=== PATIENT | female | born 1985 ===

== ENCOUNTER 2025-02-11 09:39 | Emergency (ER) | payer OTHER, SELFPAY ==
--- NOTE | ~2025-02-11 | US_ITS ---
EXAMINATION: US TRIPLEX UPPER EXTREMITY, LEFT CLINICAL INFORMATION: Left upper extremity pain COMPARISON: None available. TECHNIQUE: Color-flow triplex imaging with spectral analysis and compression Doppler was performed on the left upper extremity. FINDINGS: The left internal jugular, subclavian, and axillary veins are patent and free of thrombus. The imaged segment of the left brachiocephalic vein is patent. Spectral doppler waveforms are normal. The brachial, basilic, cephalic, radial, and ulnar veins are patent and compressible. US/US venous duplex UE LT IMPRESSION: No evidence of deep venous thrombosis involving the left upper extremity. Electronically signed by: Roosevelt Jimenes MD 02/11/2025 12:02 PM [facility]
--- NOTE | ~2025-02-11 | US_ITS ---
US EXTREMITY NONVASCULAR LIMITED LEFT HISTORY: Left leg palpable mass in left lateral knee region. COMPARISON: None. TECHNIQUE: Grayscale and color Doppler ultrasound imaging of the left leg laterally, inferior to the knee was performed in the region of palpable concern as directed by the patient. FINDINGS: In the subcutaneous region of the left lower lateral knee, correlating with the area of palpable concern, there is a subcutaneous oval hyperechoic mass, circumscribed, with good through transmission, no internal color Doppler flow, measuring 5.5 x 1.5 x 4.1 cm. This is consistent with a lipoma. No definite suspicious features. No additional abnormalities. US/US Extremity Nonvas Limited LT IMPRESSION: Palpable abnormality in the left lower leg correlates with a 5.5 x 1.5 x 4.1 cm subcutaneous lipoma. This finding is benign. Electronically signed by: Elmer Cristobal MD 02/11/2025 12:04 PM [facility]
--- NOTE | ~2025-02-11 | XR_ITS ---
EXAMINATION: XR CHEST CLINICAL INFORMATION: Pneumonia?; Cough, shortness of breath COMPARISON: None available. TECHNIQUE: 2 views of the chest were obtained. FINDINGS: The cardiac, hilar, and mediastinal contours are normal. The lungs are clear bilaterally. There is no pneumothorax or pleural effusion. There is no focal osseous or soft tissue abnormality. XR/XR chest 2V IMPRESSION: No active pulmonary disease. Electronically signed by: lEmer Cristobal MD 02/11/2025 12:27 PM [facility]
--- NOTE | ~2025-02-11 | XR_ITS ---
EXAMINATION: XR SHOULDER, LEFT CLINICAL INFORMATION: left shoulder pain COMPARISON: None available. TECHNIQUE: Three views of the left shoulder. FINDINGS: Normal bone mineralization. No fracture, dislocation, or suspicious bone lesion. Normal alignment. The glenohumeral joint is normal. The AC joint is normal. There is a type II acromion. No undersurface spurring. The subacromial space is preserved. Remainder of the soft tissue and bony structures appear normal. XR/XR shoulder LT min 2V IMPRESSION: Normal left shoulder. Electronically signed by: Elmer Cristobal MD 02/11/2025 12:28 PM [facility]
--- NOTE | ~2025-02-11 | XR_ITS ---
EXAMINATION: XR KNEE, LEFT CLINICAL INFORMATION: knee pain COMPARISON: None available. TECHNIQUE: Four views of the left knee. FINDINGS: No fracture or joint effusion. Alignment is anatomic. Joint spaces are maintained. No abnormal soft tissue calcification. XR/XR knee LT 4V IMPRESSION: Normal left knee. Electronically signed by: Elmer Cristobal MD 02/11/2025 12:28 PM [facility] [place] [place]
--- NOTE | ~2025-02-11 | US_ITS ---
EXAMINATION: US TRIPLEX LOWER EXTREMITY, LEFT CLINICAL INFORMATION: Pain, left lower extremity COMPARISON: None available. TECHNIQUE: Color-flow triplex imaging with spectral analysis and compression Doppler were performed on the left lower extremity. FINDINGS: Respiratory variation, normal compression and augmented flow are demonstrated in the interrogated left common femoral vein, superficial femoral vein, profunda femoral vein, popliteal vein and posterior tibial venous segments . There is no Garza's cyst. US/US venous duplex LE LT IMPRESSION: No acute deep venous thrombosis interrogated veins, left lower extremity. Negative for DVT. Electronically signed by: Wayne Claire MD 02/11/2025 03:33 PM EST
[2025-02-11 10:40] VITALS: BP 125/60; PULSE 70; RESP 18; TEMP 36.3; O2SAT 100; BMI 34.7
--- NOTE | 2025-02-11 10:49 | ED.GENADULT ---
HPI - General Adult General Chief complaint: General Medical Stated complaint: knee pain Time Seen by Provider: 02/11/25 13:01 Source: patient Mode of arrival: ambulatory Limitations: no limitations History of Present Illness ED Provider: Maribell Cook HPI narrative: 39 yold old female presents to the eD for left shoulder pain and left lateral leg/knee pain without any trauma. patient states no recent trauma, fever, chills, [place], vomitting, recent travel, controle use, or recent surgery. Related Data Previous Rx's ?Medication ?Instructions ?Recorded cyclobenzaprine 10 mg tablet 10 mg PO TID PRN muscle spasm #15 02/11/25 tabs naproxen 500 mg tablet 500 mg PO BID PRN pain #14 tabs 02/11/25 Allergies Allergy/AdvReac Type Severity Reaction Status Date / Time No Known Allergies Allergy Verified 02/11/25 10:43 Review of Systems Review of Systems: left arm left leg/left knee pain Yes all other systems are reviewed and are negative Physical Exam ED Vital Signs: Vital Signs - 24 hr 02/11/25 10:40 Temperature 97.3 F Pulse Rate 70 Respiratory Rate 18 Blood Pressure 125/60 Pulse Oximetry 100 Oxygen Delivery Method Room Air BMI result Body Mass Index 34.7 Const General: cooperative, healthy appearing, comfortable, no acute distress, well developed, alert and awake Orientation/consciousness: patient oriented x3 HENMT Head: Yes normal to inspection, Yes No palpable skull fracture present, Yes normocephalic and Yes atraumatic Eyes General: appearance normal, both eyes and all related structures Neck Neck: Yes normal visual inspection, Yes full ROM, Yes no lymphadenopathy, Yes no meningeal signs, Yes trachea midline, Yes supple, No anterior neck swelling and No tender Chest Chest palpation & inspection: normal inspection of the chest and normal palpation of entire chest wall Resp Effort & Inspection: normal respiratory effort Auscultation: clear to auscultation bilaterally, no crackles, no rales, no rhonchi and no wheezes Cardio Jugular venous distension: no JVD Heart sounds: S1 normal heart sound present and S2 normal heart sound present GI Inspection: Yes normal to inspection Palpation (GI): Soft to palpation, not firm, nontender, no guarding and not rigid General: Yes no CVA tenderness Back/Spine/Pelvis Back: no CVA tenderness and No back tenderness Skin General skin exam: no rashes or lesions noted, elasticity normal and turgor normal Neuro General: patient oriented x3, gait normal, tone normal, moves all extremities, Normal light touch and pain sensation, no meningeal signs, no focal motor deficits, CN's II-XI intact bilaterally and normal sensation to monofilament Extrem General: Yes normal to inspection, Yes full ROM and Yes capillary refill normal Knee images:  1. Positive for palpable mass that is tender. Negative for erythema, fluctuance, ecchymosis, or deformity. 2. Positive for tenderness on palpation. Rest of extremity normal. Motor/neuro/vascular exam intact Psych Appearance: grossly normal, well kempt and not disheveled Course Course Course Narrative: RME: 39 year female presents to the ED for atraumatic left shoulder radiating down left arm and left knee pain with palpable mass in left upper leg area referred to knee that is tender on palpation. Patient denies any trauma. Positive for left posterior calf tenderness and left shoulder tenderness. Ultrasounds EKG x-rays ordered Medical Decision Making Medical Decision Making MDM Narrative: 39-year-old female presents to ED for left shoulder and left knee calf pain. EKG 2 troponins negative. Ultrasound shows left leg lipoma negative DVT. D-dimer 198 upper limit normal 240 making negative. Not suspecting PE. Patient explained worrisome signs informed return to the ED immediately not suspecting stroke. Not suspecting dissection, PE, [place], compartment syndrome, cellulitis, arterial occlusssion, or any other concerning symptoms. pERC score 0. Differential Diagnosis Differential Diagnoses: The differential diagnosis associated with the presentation includes (DVT, fracture, dislcocation) Lab Data 02/11/25 11:25 02/11/25 11:25 Labs: Lab Results 02/11/25 02/11/25 Range/Units 11:25 13:53 WBC 5.9 (4.8-10.8) X10*3/uL RBC 4.65 (4.20-5.50) X10*6/uL Hgb 13.0 (12.0-16.0) g/dl Hct 40.2 (37.0-47.0) % MCV 86.5 (80.0-98.0) fL MCH 28.0 (27.0-33.0) pg MCHC 32.3 (31.0-35.0) g/dl RDW 13.1 (11.0-16.0) % Plt Count 295 (160-400) X10*3/uL MPV 9.9 (9.4-12.3) fL Immature Gran % (Auto) 0.3 (0.0-0.4) % Neut % (Auto) 56.6 (45-73) % Lymph % (Auto) 32.2 (20-40) % Motley % (Auto) 8.3 (2-11) % Eos % (Auto) 2.4 (0-4) % Baso % (Auto) 0.2 (0-2) % Lymph # (Auto) 1.9 (1.2-4.9) X10*3/uL Motley # (Auto) 0.5 (0.1-1.2) X10*3/uL Eos # (Auto) 0.1 (0.0-0.4) X10*3/uL Baso # (Auto) 0.0 (0.0-0.2) X10*3/uL Abs Immat Gran (auto) 0.02 (0.00-0.03) X10*3/uL Absolute Neuts (auto) 3.3 (2.0-8.3) x10*3/uL Absolute Nucleated RBC 0.000 (0.0-0.012) X10*3/uL Nucleated RBC % (auto) 0.0 (0.0-0.2) /100WBC PT 11.9 (11.2-13.5) SEC INR 1.0 (0.9-1.1) APTT 32.1 (26.7-34.1) SEC D-Dimer High Sensitivty 198 NG/ML Sodium 139 (135-145) mmol/L Potassium 4.7 (3.3-5.1) mmol/L Chloride 113 H (96-108) mmol/L Carbon Dioxide 24 (22-29) mmol/L Anion Gap 7 L (12-20) BUN 13 (9-16) mg/dL Creatinine 0.74 (0.5-1.4) mg/dL Estim Creat Clear Calc 122.6 Estimated GFR > 60 Random Glucose 93 (60-115) mg/dL Calcium 9.1 (8.4-10.2) mg/dL Total Bilirubin 0.6 (0.0-1.0) mg/dL AST 19 (5-31) U/L ALT 15 (0-31) U/L Alkaline Phosphatase 90 (39-117) U/L Troponin I High Sens < 2.7 < 2.7 (<3.5-17.0) ng/L Total Protein 7.4 (6.5-8.0) g/dL Albumin 4.5 (3.5-5.0) g/dL Beta HCG, Quant < 2 mIU/mL Discharge Plan Discharge Clinical Impression: Lipoma, Arm pain Patient Disposition: Home, Self-Care Instructions: Lipoma (ED), Soft Tissue Mass (ED) Additional Instructions: Recommend follow-up with primary care provider. You will need follow-up with surgeon. Return to the ED for any chest pain, shortness of breath, weakness, dizziness, increased swelling of mass, calf pain, chest pain, shortness of breath, weakness numbness/tingling, red streaks, leg pain, or any other concerning symptoms. Ordering Physician: Maribell Cook Date of Service: 02/11/25 Procedure(s): XR chest 2V Accession Number(s): [id number] cc: Maribell Cook; Physician,Unknown ~ Reason for Exam: Pneumonia? EXAMINATION: XR CHEST CLINICAL INFORMATION: Pneumonia?; Cough, shortness of breath COMPARISON: None available. TECHNIQUE: 2 views of the chest were obtained. FINDINGS: The cardiac, hilar, and mediastinal contours are normal. The lungs are clear bilaterally. There is no pneumothorax or pleural effusion. There is no focal osseous or soft tissue abnormality. XR/XR chest 2V IMPRESSION: No active pulmonary disease. Electronically signed by: Elmer Cristobal MD 02/11/2025 12:27 PM [facility] [place] [facility] [place] Physician: Maribell Cook Date of Service: 02/11/25 Procedure(s): US Extremity Nonvas Limited LT Accession Number(s): [id number] cc: Maribell Cook; Physician,Unknown ~ Reason for Exam: Left leg/calf pain. lateral tender mass US EXTREMITY NONVASCULAR LIMITED LEFT HISTORY: Left leg palpable mass in left lateral knee region. COMPARISON: None. TECHNIQUE: Grayscale and color Doppler ultrasound imaging of the left leg laterally, inferior to the knee was performed in the region of palpable concern as directed by the patient. FINDINGS: In the subcutaneous region of the left lower lateral knee, correlating with the area of palpable concern, there is a subcutaneous oval hyperechoic mass, circumscribed, with good through transmission, no internal color Doppler flow, measuring 5.5 x 1.5 x 4.1 cm. This is consistent with a lipoma. No definite suspicious features. No additional abnormalities. US/US Extremity Nonvas Limited LT IMPRESSION: Palpable abnormality in the left lower leg correlates with a 5.5 x 1.5 x 4.1 cm subcutaneous lipoma. This finding is benign. Electronically signed by: Elmer Cristobal MD 02/11/2025 12:04 PM [facility] Ordering Physician: Maribell Cook Date of Service: 02/11/25 Procedure(s): US venous duplex LE LT Accession Number(s): [id number] cc: Maribell Cook; Physician,Unknown ~ Reason for Exam: persistent calf pain. D-dimer positive EXAMINATION: US TRIPLEX LOWER EXTREMITY, LEFT CLINICAL INFORMATION: Pain, left lower extremity COMPARISON: None available. TECHNIQUE: Color-flow triplex imaging with spectral analysis and compression Doppler were performed on the left lower extremity. FINDINGS: Respiratory variation, normal compression and augmented flow are demonstrated in the interrogated left common femoral vein, superficial femoral vein, profunda femoral vein, popliteal vein and posterior tibial venous segments . There is no Garza's cyst. US/US venous duplex LE LT IMPRESSION: No acute deep venous thrombosis interrogated veins, left lower extremity. Negative for DVT. Electronically signed by: Wayne Claire MD 02/11/2025 03:33 PM EST RP Prescriptions: New naproxen 500 mg tablet 500 mg PO BID PRN (Reason: pain) Qty: 14 0RF cyclobenzaprine 10 mg tablet 10 mg PO TID PRN (Reason: muscle spasm) Qty: 15 0RF Rx Instructions: muscle pain Referrals: [facility] [place] General Surgeons [Provider Group, General Surgery] - 2 days Referral Note: lipoma Clinical Impression: Lipoma Interventions: ED Discharge Assessment Last Done: 02/11/25 17:24 Discharge Date/Time: 02/11/25 17:25 Print Language: Belarusian
--- NOTE | 2025-02-11 11:03 | ECG_ITS ---
Test Reason : left shoulder pain Blood Pressure : */* mmHG Vent. Rate : 71 BPM Atrial Rate : 71 BPM P-R Int : 134 ms QRS Dur : 72 ms QT Int : 366 ms P-R-T Axes : 45 25 12 degrees QTcB Int : 397 ms Poor data quality, interpretation may be adversely affected Normal sinus rhythm Normal ECG No previous ECGs available Referred By: Carlos Cook Electronically Signed By: JAYNE RODRIGUES MD
[2025-02-11 11:29] LABS: MANUAL DIFF FLAG NO
[2025-02-11 11:31] LABS: Hematocrit 40.2 % (37.0-47.0); Hemoglobin 13.0 g/dl (12.0-16.0); Imm Gran Abs Auto 0.02 X10*3/uL (0.00-0.03); Imm Gran Pct Auto 0.3 % (0.0-0.4); Lymphocytes Absolute Auto 1.9 X10*3/uL (1.2-4.9); Mean Corpuscular HGB Conc 32.3 g/dl (31.0-35.0); Mean Corpuscular Hemoglobin 28.0 pg (27.0-33.0); Mean Corpuscular Volume 86.5 fL (80.0-98.0); NRBC Abs Auto 0.000 X10*3/uL (0.0-0.012); NRBC Pct Auto 0.0 /100WBC (0.0-0.2); Platelet Count 295 X10*3/uL (160-400); Red Blood Count 4.65 X10*6/uL (4.20-5.50); White Blood Count 5.9 X10*3/uL (4.8-10.8)
[2025-02-11 11:44] LABS: INTERNATIONAL NORM RATIO 1.0 (0.9-1.1); Prothrombin Time 11.9 SEC (11.2-13.5)
[2025-02-11 11:45] LABS: Alanine Aminotransferase 15 U/L (0-31); Albumin Level 4.5 g/dL (3.5-5.0); Alkaline Phosphatase 90 U/L (39-117); Anion Gap 7 (12-20); Aspartate Amino Transferase 19 U/L (5-31); Blood Urea Nitrogen 13 mg/dL (9-16); Calcium 9.1 mg/dL (8.4-10.2); Carbon Dioxide 24 mmol/L (22-29); Chloride 113 mmol/L (96-108); Creatinine Clr Calc Pharmacy 122.6; Estimated Glomerular Filt Rate > 60; Potassium 4.7 mmol/L (3.3-5.1); Sodium 139 mmol/L (135-145); Total Protein 7.4 g/dL (6.5-8.0)
[2025-02-11 11:47] LABS: Partial Thromboplastin Time 32.1 SEC (26.7-34.1)
[2025-02-11 12:01] LABS: Troponin-I High Sensitivity < 2.7 ng/L (<3.5-17.0)
[2025-02-11 13:53] LABS: D Dimer High Sensitivity 198 NG/ML
[2025-02-11 14:31] LABS: Troponin-I High Sensitivity < 2.7 ng/L (<3.5-17.0)
[2025-02-11 17:24] VITALS: BP 125/60; PULSE 70; RESP 18; TEMP 36.3; O2SAT 100
--- OUTSIDE RECORDS SUMMARY | 2025-02-11 17:27 | XMS_ITS | Clinical Summary ---
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 Relative 0.2 % LAB HEMETOLOGY METHOD 12/09/2024 6:16 AM [facility] Neutrophils Absolute 3.64 1.50 - 7.00 K/mcL LAB HEMETOLOGY METHOD 12/09/2024 6:16 AM [facility] Lymphocytes Absolute 1.41 1.00 - 5.00 K/mcL LAB HEMETOLOGY METHOD 12/09/2024 6:16 AM [facility] Monocytes Absolute 0.35 0.20 - 1.00 K/mcL LAB HEMETOLOGY METHOD 12/09/2024 6:16 AM [facility] Eosinophils Absolute 0.11 0.00 - 0.50 K/mcL LAB HEMETOLOGY METHOD 12/09/2024 6:16 AM EDT [facility] Basophils Absolute 0.02 0.00 - 0.20 K/[facility] LAB HEMETOLOGY METHOD 12/09/2024 6:16 AM T [facility] Immature Granulocytes Absolute 0.01 0.00 - 0.03 K/[facility] LAB HEMETOLOGY METHOD 12/09/2024 6:16 AM T [facility] Blood Venous blood specimen / Unknown Venipuncture / Unknown 12/09/2024 5:47 AM EDT 12/09/2024 6:03 AM EDT us Lenin Horton MD LAB BLOOD ORDERABLES Final R esult [facility] [address] [place] [address], * Comprehensive Metabolic Panel (CMP) (12/09/2024 5:47 AM EDT) Sodium 138 133 - 145 mmol/L LAB CHEMISTRY METHOD 12/09/2024 6:37 AM [facility] Potassium 4.7 3.5 - 5.5 mmol/L LAB CHEMISTRY METHOD 12/09/2024 6:37 AM [facility] Chloride 107 96 - 110 mmol/L LAB CHEMISTRY METHOD 12/09/2024 6:37 AM [facility] CO2 27 21 - 32 mmol/L LAB CHEMISTRY METHOD 12/09/2024 6:37 AM [facility] Anion Gap 4 3 - 11 LAB CHEMISTRY METHOD 12/09/2024 6:37 AM [facility] Glucose 82 70 - 100 mg/dL LAB CHEMISTRY METHOD 12/09/2024 6:37 AM [facility] BUN 14 5 - 25 mg/dL LAB CHEMISTRY METHOD 12/09/2024 6:37 AM [facility] Creatinine 0.76 0.50 - 1.10 mg/dL LAB CHEMISTRY METHOD 12/09/2024 6:37 AM [facility] eGFR 104 >=60 mL/min/1. 73m2 LAB CHEMISTRY METHOD 12/09/2024 6:37 AM [facility] Comment:Calculation based on the Chronic Kidney Disease Epidemiology Collaboration (CKD-EPI) equation refit without adjustment for race. BUN/Creatinine Ratio 18.4 LAB CHEMISTRY METHOD 12/09/2024 6:37 AM [facility] Calcium 9.2 8.5 - 10.5 mg/dL LAB CHEMISTRY METHOD 12/09/2024 6:37 AM [facility] AST (SGOT) 19 10 - 42 unit/L LAB CHEMISTRY METHOD 12/09/2024 6:37 AM [facility] ALT (SGPT) 20 10 - 60 unit/L LAB CHEMISTRY METHOD 12/09/2024 6:37 AM [facility] Alkaline Phosphatase 96 42 - 121 unit/L LAB CHEMISTRY METHOD 12/09/2024 6:37 AM [facility] Total Protein 7.1 6.0 - 8.0 g/dL LAB CHEMISTRY METHOD 12/09/2024 6:37 AM [facility] Albumin 4.0 3.2 - 5.0 g/dL LAB CHEMISTRY METHOD 12/09/2024 6:37 AM [facility] Total Bilirubin 0.7 0.0 - 1.4 mg/dL LAB CHEMISTRY METHOD 12/09/2024 6:37 AM [facility] Blood Venous blood specimen / Unknown Venipuncture / Unknown 12/09/2024 5:47 AM EDT 12/09/2024 6:03 AM EDT us Lenin Horton MD LAB BLOOD ORDERABLES Final R esult [facility] [place] [facility] [address] [place] [address], from Last 3 Months Insurance [employer] Care Teams Airline Managerial Supervisor Relationship Specialty Start Date End Date Pito Flynn DO [address] [place] [id number] PCP - General 12/30/24
== END 2025-02-11 17:25 | disposition home or self-care (01) ==
PROVIDERS: Physician Assistant; Emergency Provider Emergency Medicine
DX: D17.24 Benign lipomatous neoplasm of skin and subcutaneous tissue of left leg (principal); M25.512 Pain in left shoulder
CPT/HCPCS: 36415; 71046; 73030; 73564; 76882; 80053; 84484; 84702; 85025; 85379; 85610; 85730; 93005; 93971; 99283; 99285

== ENCOUNTER → 2025-02-11 11:03 | Outpatient (BNV) | payer OTHER, SELFPAY | PROVIDERS: Visit Provider Radiology Diagnostic Radiology | DX: D17.24 Benign lipomatous neoplasm of skin and subcutaneous tissue of left leg (principal); M79.622 Pain in left upper arm; M79.662 Pain in left lower leg; M25.562 Pain in left knee; R05.9 Cough, unspecified; R06.02 Shortness of breath; M25.512 Pain in left shoulder | CPT/HCPCS: 71046; 73030; 73564; 76882; 93971 ==

== ENCOUNTER → 2025-02-11 11:03 | Outpatient (BNV) | payer OTHER, SELFPAY | PROVIDERS: Emergency Provider Emergency Medicine; Visit Provider Internal Medicine Cardiovascular Disease | DX: M25.512 Pain in left shoulder (principal) | CPT/HCPCS: 93010 ==

== ENCOUNTER 2025-02-13 14:38 | Outpatient (AMB) | payer OTHER, SELFPAY ==
[2025-02-13 14:40] VITALS: BP 133/73; PULSE 85; BMI 35.2
--- NOTE | 2025-02-13 14:40 | MHC.OFFVIS ---
Vital Signs 02/13/25 14:40 Height 5 ft 6 in Weight 218 lb BMI 35.2 BP 133/73 Blood Pressure Location Rt brachial Position Sitting Pulse 85 Intake Visit Reasons: lipoma Intake Note: Patient referred after ED visit for lipoma on Lt lower lateral knee. First noticed 1yr ago. Suddenly growing. Patient c/o: very painful, cramps when standing. Imaging: US LE LT~ 02-11-2025 Spa Therapist Required: Yes Information Interpreted: non-clinical & clinical (Corinna BURR) Accompanied by: daughter Kelly Allergies No Known Allergies Allergy (Verified 02/13/25 14:50) Medication List - Last Reconciled 02/13/25 by Rodrick Matos MD cyclobenzaprine 10 mg PO TID PRN naproxen 500 mg PO BID PRN HPI Comments Details: Patient reports that she has had a ?lump? involving her left lower extremity for quite some time. She reports it is gradually getting larger and she desires excision. PFSH Surgical History (Updated 02/13/25 @ 14:51 by AMINAH Mercedes) Hx of umbilical hernia repair Social History (Updated 02/13/25 @ 14:51 by AMINAH Mercedes) Alcohol intake: never Patient Tobacco Use Status: Never used Tobacco Review of Systems Const All systems reviewed & are unremarkable except as noted in HPI and below Physical Exam Vital Signs: Last Vital Signs Pulse 85 02/13/25 14:40 BP 133/73 02/13/25 14:40 BMI result Body Mass Index 35.2 Const General: cooperative, healthy appearing, comfortable and no acute distress Nutritional Appearance: obese HEENT Head: Yes normal to inspection Eyes Pupils: Equal, round and reactive pupils present EOM: EOMs intact bilaterally Neck Neck: Yes normal visual inspection Resp Effort & Inspection: normal respiratory effort and able to speak in complete sentences Cardio Rate: regular rate Rhythm: regular rhythm GI Inspection: Yes normal to inspection Neuro Cranial nerves: Yes Equal, round and reactive pupils present Extrem Other: 3-4 cm soft mobile mass involving the left lower extremity d directly over the junction of the lateral condyle of the tibia and the head of the fibula. She exhibits no neurologic findings on that side with normal sensorium and no foot drop. Assessment & Plan Assessment & Plan (1) Lipoma: Code(s): D17.9 - Benign lipomatous neoplasm, unspecified Category: Medical Plan: I explained the patient the nature of excisional biopsy of her lipoma (diagnosed by ultrasound). I Reviewed with her the risks that are involved with such an endeavor. These include but are not limited to the risk of bleeding the risks of infection the risk of recurrence the risk of unsightly scarring the risk of chronic pain the risk of nerve damage and the risk that the surgery would not solve her current issues with discomfort were all reviewed with her in detail. She told me that she understood. She told me that she carefully considered her options. She told me that she understood and accepted the risks that she described as inherent to excisional biopsy of her left lower extremity lipoma. She indicated that despite these risks she still wished to proceed with the operative intervention. Orders: Referrals General Surgery Procedure Notification D17.9 - Benign lipomatous neoplasm, unspecified Coding Level of Care Code New Pt Level 3 (44167) Diagnoses Lipoma D17.9 Time Spent (min) 30 Comment Patient visit, record review and coordination of care time
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
--- OUTSIDE RECORDS SUMMARY | 2025-02-13 22:13 | XMS_ITS | Encounter Summary ---
Author Organization [employer] Address [address] [place] [address] Care Team Providers Care Boilermaker Pipe Fitter Name Role Phone Pito Flynn DO Primary Care Provider [phone] Encounter Details Date Type Department Care Team ([facility] Contact Info) Description 01/10/2025 Results Follow-Up Neurosurgery [facility] [address] [place] [phone] Miriam Maurer PA [address] [facility] [address] [place] [address] Social History Tobacco Use Types Packs/Day Years Used Date Smoking Tobacco: Never Passive Smoke Exposure: Never Smokeless Tobacco: Never Alcohol Use Standard Drinks/Week Comments Never 0 (1 standard drink = 0.6 oz pur e alcohol) Comments Unknown Sex and Gender Information Value Date Recorded Sex Assigned at Not on file Legal Sex Female 3:32 AM EST Gender Identity Not on file Sexual Orientation Not on file documented as of this encounter Progress Notes * TORY Garrison - 02/12/2025 4:50 PM EST [facility] neurosurgery notes reviewed, it appears Dr. 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 When I saw pt, her mass appeared stable, Dimitrios Rome rec: F/U L/S MRI in one year, but we may not need to order that if pt is seeing Kelvin for the same issue. She has neurology appt 04-21-25. documented in this encounter Plan of Treatment Upcoming Encounters Date Type Department Care Team (Late st Contact Info) Description 04/21/2025 9:00 AM EST Consult [facility] [address] [phone] Sharon Patel MD [address] [place] [address] documented as of this encounter Visit Diagnoses Not on filedocumented in this encounter Care Teams Boilermaker Pipe Fitter Relationship Specialty Start Date End Date Pito Flynn DO [address] [place] [address] PCP - General 12/30/24 documented as of this encounter
== END 2025-02-13 14:58 | disposition home or self-care (01) ==
LOC: HO.HGS 14:38
PROVIDERS: PCP Internal Medicine; Visit Provider Surgery
DX: D17.9 Benign lipomatous neoplasm, unspecified (principal)
CPT/HCPCS: 99203

== ENCOUNTER → 2025-02-13 14:38 | Outpatient (BNVA) | payer OTHER, SELFPAY | PROVIDERS: PCP Internal Medicine; Visit Provider Surgery | DX: D17.24 Benign lipomatous neoplasm of skin and subcutaneous tissue of left leg (principal) | CPT/HCPCS: 99202 ==